=== PATIENT | female | born 1960 | race African-American/Black ===

== ENCOUNTER → 2018-11-19 | Day surgery (SDC) | payer OTHER ==
--- NOTE | 2018-11-22 14:37 | PATH ---
Surgical Pathology Report Patient Name: MELL BOLIVAR [facility]. Rec. #: [id number] /Age/Gender: 1960 (Age: 58) / F Account: [id number] Location: [facility] U Taken: 11/19/2018 Received: 11/19/2018 Reported: 11/22/2018 Physicians: Moe Kenyon M.D. Specimen(s) Received A: LEFT BREAST CORE BIOPSY 3N5 B: LEFT AXILLARY NODE CORE BIOPSY Clinical History Ultrasound findings: Highly suspicious/malignant Palpable mass, history of left DCIS Final Diagnosis A. BREAST, LEFT, 3:00, 5 CM FN, CORE BIOPSY : INVASIVE DUCTAL CARCINOMA, POORLY DIFFERENTIATED, MEASURING 1.2 CM IN GREATEST DIMENSION. IN THIS MATERIAL. (SEE NOTE). Note: The carcinoma is positive for E-Cadherin (performed at [facility]), which supports ductal phenotype. B. LYMPH NODE, LEFT AXILLA, CORE BIOPSY: METASTATIC CARCINOMA, EXTENSIVELY INVOLVING LYMPH NODE. Results of ER and ID studies performed on block A1 at [facility] are as follows: ER (clone [id number] mouse monoclonal antibody by [employer]): >90 % nuclear staining with strong intensity (positive). ID (clone16 mouse monoclonal antibody by [employer]):~40 % nuclear staining with moderate to strong intensity (positive). Results of Her2 & Ki67 studies will be reported separately in an addendum. Positive and negative controls (internal if applicable) show appropriate results. Formalin fixation and cold ischemic times are within current ASCO/CAP recommendations for ER, ID and Her2 testing. Electronically Signed Chiquita Thompson M.D. Addendum Reported: 11/23/2018 Addendum Diagnosis Results of Her2 (IHC) & Ki-67 studies performed on block A1 at [place], [place] ([id number] ) are as follows: Her2 IHC (EP3 from [employer], formerly known as [id number], using [employer] Polymer Refine detection kit):0 (negative). Ki-67:~70% (high proliferative index). Positive and negative controls (internal if applicable) show appropriate results. Chiquita Thompson M.D. Gross Description A. Received in formalin labeled "left breast 3:00, 5 cm fn " are 8 boswell-yellow, cylindrical portions of fibroadipose tissue admixed with blood ranging from 0.5-1.0 cm in length and averaging 0.2 cm diameter. The specimens are submitted in toto in one cassette. B. Received in formalin label "left breast axillary node" are 4 boswell-yellow, cylindrical portions of fibroadipose tissue ranging from 0.5-1 cm in length and averaging 0.2 cm diameter. The specimens are submitted in toto in one cassette. Time to formalin fixation: 1 minute Total formalin fixation time: 9-10 hours. EMMAZ/11/19/2018 govind/11/19/2018
--- NOTE | 2018-11-23 07:31 | OP ---
DATE OF OPERATION: 11/19/2018 PREOPERATIVE DIAGNOSIS: Left breast mass 3 o'clock, 5 cm from the nipple, and suspicious left axillary node. POSTOPERATIVE DIAGNOSIS: Left breast mass 3 o'clock, 5 cm from the nipple, and suspicious left axillary node. PROCEDURE: Left breast ultrasound-guided core biopsy and clip placement and left axillary node ultrasound-guided core biopsy and clip placement. ANESTHESIA: Local. ATTENDING SURGEON: Moe Kenyon MD ESTIMATED BLOOD LOSS: Minimal. COMPLICATIONS: None. DESCRIPTION OF PROCEDURE: Patient was made aware of the risks and benefits of the procedure and consented. She was placed in the supine position. The left breast mass was approached first. Under sterile conditions with 1% Lidocaine for local anesthesia, a small adriano was made in the skin. Using a 13-guage suction biopsy device though a lateral approach under ultrasound guidance, multiple cores were obtained and submitted to Pathology. Likewise, under ultrasound guidance, a bowtie clip was placed into the biopsy region. Well tolerated by patient. Steri-Strip and a sterile bandage were applied. Left axilla was then approached. Under sterile conditions with 1% lidocaine for local anesthesia, a small adriano was made in the skin. Using a 13-guage suction biopsy device though an inferior approach, multiple cores were obtained and submitted to Pathology. Likewise, under ultrasound guidance, a HydroMARK barrel-shaped clip was placed into the biopsy region with the lymph node. Well tolerated by patient. Steri-Strip and a sterile bandage were applied. Will contact her with the results. MOE KENYON M.D. [id number]
== END | disposition home or self-care (01) ==
LOC: FRADUS-SUR 08:15 → EDSTATUS 08:15 → FRADUS 08:15 → FRAD 08:15
PROVIDERS: ATTEND Surgery Surgical Oncology
PROC: 0HBU3ZX Excision of Left Breast, Percutaneous Approach, Diagnostic (ICD-10-PCS; principal; 2018-11-19)
PROC: 07B63ZX Excision of Left Axillary Lymphatic, Percutaneous Approach, Diagnostic (ICD-10-PCS; 2018-11-19)
PROC: BH47ZZZ Ultrasonography of Upper Extremity (ICD-10-PCS; 2018-11-19)
DX: C50.812 Malignant neoplasm of overlapping sites of left female breast (principal); C77.3 Secondary and unspecified malignant neoplasm of axilla and upper limb lymph nodes; Z17.0 Estrogen receptor positive status [ER+]; N63.20 Unspecified lump in the left breast, unspecified quadrant; R59.9 Enlarged lymph nodes, unspecified
CPT/HCPCS: 19083; 76942-TC; 77066-TC; 87899; 88305-TC; 88342-TC; A4648; G0279-TC